=== PATIENT | female | born 1990 | race African-American/Black ===

== ENCOUNTER 2018-12-21 20:31 | Emergency (ER) | payer MEDICARE, MEDICAID ==
[~2018-12-21] VITALS: Ht 154.9 cm; Wt 68.0 kg
[2018-12-21] MEDS ORDERED: KETOROLAC 30MG/ML VIAL IV STA (21:08)
[2018-12-21] MEDS ORDERED: MORPHINE SULFATE 4 MG/ML CPJ (NOT FOR IM USE) IV STA (21:08)
[2018-12-21] MEDS ORDERED: ONDANSETRON HCL 4MG/2ML INJ IV STA (21:08)
[2018-12-21] MEDS ORDERED: ETOMIDATE 2MG/ML 10ML VIAL IV ONE (21:45)
[2018-12-21] MEDS ORDERED: LORAZEPAM 2MG/ML CPJ ONE (22:02)
[2018-12-21 22:05] VITALS: BP 153/89
[2018-12-21] MEDS ORDERED: LORAZEPAM 2MG/ML CPJ IV ONE (22:15)
== END 2018-12-21 23:19 | disposition home or self-care (01) ==
LOC: ER 20:31
DX: S52.531A Colles' fracture of right radius, initial encounter for closed fracture (principal); F32.9 Major depressive disorder, single episode, unspecified; V49.09XA Driver injured in collision with other motor vehicles in nontraffic accident, initial encounter; Y93.89 Activity, other specified; Y92.89 Other specified places as the place of occurrence of the external cause; Y99.8 Other external cause status
CPT/HCPCS: 25605; 73100; 73110; 96374; 96375; 99152; 99285; J1885; J2060; J2270; J2405; J3490